=== PATIENT | male | born 1985 | race Caucasian/White ===

== ENCOUNTER 2016-09-21 10:31 | Inpatient (IN) | payer OTHER ==
[~2016-09-21] VITALS: Ht 177.8 cm; Wt 66.7 kg
[2016-09-21] MEDS ORDERED: HYDROmorphone INJ 1 MG/ML SYR IV STA (11:23)
[2016-09-21] MEDS ORDERED: ALBUTEROL HFA 8 GM INHALER INH STA (11:23)
[2016-09-21] MEDS ORDERED: ALBUTEROL 0.5% NEB SOLN 2.5 MG/0.5 ML VIAL INH STA (11:23)
[2016-09-21] MEDS ORDERED: KETOROLAC TROMETHAMINE 30 MG/ML VIAL IV STA (11:23)
[2016-09-21] MEDS ORDERED: OXYC-57 PO (11:26)
[2016-09-21] MEDS ORDERED: FLX/5 (11:26)
--- NOTE | 2016-09-21 11:56 | DIAGNOSTIC IMAGING REPORT ---
RIGHT SHOULDER MIN 2 VIEWS ROUTINE HISTORY: 31 years-old Male Pt c/o Rt shoulder pain Right COMPARISON: Portable chest radiograph 09/21/2016 TECHNIQUE: 3 views of the right shoulder. FINDINGS: There is no acute fracture, dislocation or significant degenerative changes. No radiopaque foreign body. There is a large right-sided pneumothorax without definite leftward midline shift identified. IMPRESSION: 1. Large right-sided pneumothorax, better evaluated on chest radiograph of same day. 2. No acute bony abnormality of the right shoulder. These findings were discussed with Dr. Addi Chavez on 09/21/2016 at 11:55 AM The above report was generated using voice recognition software. It may contain grammatical, syntax or spelling errors. Electronically signed by: Frantz Zayas M.D. 09/21/2016 11:55 AM Dictated Date/Time: 09/21/2016 11:51 AM
--- NOTE | 2016-09-21 12:07 | DIAGNOSTIC IMAGING REPORT ---
CHEST 1 VW FRONT-NOT PORTABLE CLINICAL HISTORY: Pt c/o SOB dyspnea COMPARISON STUDY: No previous studies for comparison. FINDINGS: Large right pneumothorax. Estimated volume is 75% pneumothorax. No significant cardiac mediastinal silhouette shift. Left lung is considered clear. IMPRESSION: 75% right-sided pneumothorax. No significant cardiomediastinal shift. This report was phoned to the emergency room The above report was generated using voice recognition software. It may contain grammatical, syntax or spelling errors. Electronically signed by: Otto Lara M.D. 09/21/2016 12:06 PM Dictated Date/Time: 09/21/2016 12:03 PM
[2016-09-21] MEDS ORDERED: XYLOCAINE 1%/SOD BICARB 20 ML VIAL INFIL ONE (12:18)
--- NOTE | 2016-09-21 12:18 | EMERGENCY ROOM VISIT NOTE ---
History Report prepared by Roxanna: Tri Back Under the Supervision of: Dr. Addi Chavez M.D. First contact with patient: 11:20 Chief Complaint: Chest pain Stated Complaint: WEAKNESS,CHEST PAIN,SOB Nursing Triage Summary: Pt woke up yesterday morning with shortness of breath. Pt has a history of pluerisy of the left side last year. Pt has a productive cough with clear sputum and when he takes a deep breath there is pain with both inhalation/exhalation. Pt states that the right side of his chest is swollen. Pts left breath sound are diminished in the left lower lobe. Pt denies any fever or chills. Pt reports pain in his left chest as a 6 out of 10 on pain scale while at rest. With movement pain increases. History of Present Illness The patient is a 31 year old male who presents to the Emergency Room with complaints of worsening right-sided chest pain that began yesterday. He states that his pain radiates into his right shoulder and through into the right side of his back. The patient rates his pain as a 7/10 in severity. His pain is exacerbated by deep breathing, coughing, and movement of the right arm. He denies any injury to his chest and any recent heavy lifting. He states that he just woke up yesterday morning with the pain. The patient states that he has tendonitis in his left shoulder, but notes that this pain feels different. He tried taking a muscle relaxer yesterday and did not have any relief of his symptoms. He does report some shortness of breath. The patient denies lightheadedness. He denies any significant cardiac history. The patient does smoke cigarettes. Source of History: patient Onset: yesterday Position: chest (right) Symptom Intensity: 7/10 Quality: other (radiating) Timing: worsening Modifying Factors (Worsening): breathing, movement, other (coughing) Associated Symptoms: + back pain Review of Systems See HPI for pertinent positives & negatives. A total of 10 systems reviewed and were otherwise negative. Past Medical & Surgical Medical Problems: (1) Hypertension (2) Spontaneous pneumothorax (3) Tendonitis of shoulder, left Family History Diabetes mellitus Seizures Social History Smoking Status: Current Every Day Smoker Alcohol Use: none Marital Status: in relationship Housing Status: lives with significant other Occupation Status: employed Current/Historical Medications Scheduled Oxycodone/Acetaminophen 5MG/325MG (Percocet 5MG/325MG), 1 TAB PO QID Miscellaneous Medications Cyclobenzaprine HCl (Cyclobenzaprine HCl) Allergies Coded Allergies: No Known Allergies (Unverified , 09/21/16) Physical Exam Vital Signs Date Time Temp Pulse Resp B/P (MAP) Pulse Ox O2 Delivery O2 Flow Rate FiO2 09/21/16 12:42 71 18 146/96 99 Nasal Cannula 3.0 09/21/16 12:41 73 09/21/16 12:39 77 18 139/90 98 Nasal Cannula 3.0 09/21/16 12:30 72 18 144/88 98 Nasal Cannula 3.0 09/21/16 12:00 65 20 156/93 97 Nasal Cannula 3.0 09/21/16 11:00 85 09/21/16 10:57 97 Room Air 09/21/16 10:57 96 Room Air 09/21/16 10:37 36.7 90 20 137/83 97 Room Air Physical Exam GENERAL: Patient is a healthy-appearing well-nourished 31 year old male. HEAD: Normocephalic atraumatic EYES: Ocular movements intact pupils equal and react to light OROPHARYNX mucous membranes are moist no exudates present no erythema or edema present NECK: Supple no nuchal rigidity CHEST: Good equal expansion LUNGS: Clear and equal to auscultation CARDIAC: Normal S1 and S2 ABDOMEN: Soft nontender no guarding BACK: No CVA tenderness EXTREMITIES: No pain upon palpation normal muscle strength in all groups no clubbing cyanosis or edema NEURO: Patient is following commands and answering questions appropriately. Alert and oriented x3 Cranial Nerves 2-12 grossly intact Medical Decision & Procedures ER Provider Diagnostic Interpretation: Radiology results as stated below per my review and radiologist interpretation: RIGHT SHOULDER MIN 2 VIEWS ROUTINE HISTORY: 31 years-old Male Pt c/o Rt shoulder pain Right COMPARISON: Portable chest radiograph 09/21/2016 TECHNIQUE: 3 views of the right shoulder. FINDINGS: There is no acute fracture, dislocation or significant degenerative changes. No radiopaque foreign body. There is a large right-sided pneumothorax without definite leftward midline shift identified. IMPRESSION: 1. Large right-sided pneumothorax, better evaluated on chest radiograph of same day. 2. No acute bony abnormality of the right shoulder. These findings were discussed with Dr. Addi Chavez on 09/21/2016 at 11:55 AM The above report was generated using voice recognition software. It may contain grammatical, syntax or spelling errors. Electronically signed by: Frantz Zayas M.D. 09/21/2016 11:55 AM Dictated Date/Time: 09/21/2016 11:51 AM CHEST 1 VW FRONT-NOT PORTABLE CLINICAL HISTORY: Pt c/o SOB dyspnea COMPARISON STUDY: No previous studies for comparison. FINDINGS: Large right pneumothorax. Estimated volume is 75% pneumothorax. No significant cardiac mediastinal silhouette shift. Left lung is considered clear. IMPRESSION: 75% right-sided pneumothorax. No significant cardiomediastinal shift. This report was phoned to the emergency room The above report was generated using voice recognition software. It may contain grammatical, syntax or spelling errors. Electronically signed by: Otto Lara M.D. 09/21/2016 12:06 PM Dictated Date/Time: 09/21/2016 12:03 PM CHEST ONE VIEW PORTABLE CLINICAL HISTORY: Post chest tube insertion tube position COMPARISON STUDY: 09/21/2016 FINDINGS: Interval placement of right-sided chest tube. Subsegmental atelectatic change right midlung and right base. Considerable decrease in volume of right-sided pneumothorax. Mediastinum and cardiac silhouette remains midline. IMPRESSION: Considerable decrease in volume of a right-sided pneumothorax with near complete reinflation of the right lung post right chest tube placement. Residual atelectatic change right midlung and right base.. The above report was generated using voice recognition software. It may contain grammatical, syntax or spelling errors. Electronically signed by: Otto Lara M.D. 09/21/2016 1:04 PM Dictated Date/Time: 09/21/2016 1:03 PM Medications Administered Medications (Trade) Dose Ordered Sig/Ramy Route Start Time Stop Time Status Last Admin Dose Admin Ketorolac Tromethamine (Toradol Inj) 30 mg NOW STAT IV 09/21/16 11:23 09/21/16 11:25 DC 09/21/16 11:33 30 MG Hydromorphone HCl (Dilaudid Inj) 1 mg NOW STAT IV 09/21/16 11:23 09/21/16 11:25 DC 09/21/16 11:33 1 MG Albuterol (Ventolin Hfa Inhaler) 2 puffs NOW STAT INH 09/21/16 11:23 09/21/16 11:26 DC 09/21/16 11:34 2 PUFFS Albuterol Sulfate (Ventolin 0.5% 2.5MG/0.5ML Neb) 2.5 mg NOW STAT INH 09/21/16 11:23 09/21/16 11:26 DC 09/21/16 11:33 2.5 MG Morphine Sulfate (MoRPHine SULFATE INJ) 2 mg STK-MED ONCE .ROUTE 09/21/16 12:28 09/21/16 12:29 DC 09/21/16 12:38 2 MG Midazolam HCl (Versed Inj) 2 mg STK-MED ONCE .ROUTE 09/21/16 12:28 09/21/16 12:29 DC 09/21/16 12:39 1 MG Oxycodone HCl (Roxicodone Immediate Rel Tab) 5 mg Q6H PRN PO 09/21/16 12:45 10/05/16 12:44 09/22/16 09:00 5 MG Morphine Sulfate (MoRPHine SULFATE INJ) 2 mg Q3H PRN IV 09/21/16 12:45 09/22/16 09:20 DC 09/21/16 19:25 2 MG ECG Indication: chest pain Rate (beats per minute): 75 Rhythm: normal sinus Findings: no acute ischemic change, no ectopy ED Course 1120: Past medical records reviewed. The patient was evaluated in room C. A complete history and physical examination was performed. 1123: Albuterol sulfate 2.5 mg INH, Albuterol 2 puffs INH, Dilaudid 1 mg IV, Toradol 30 mg IV 1155: At this time I spoke with the radiologist regarding the patient's radiology results. 1159: I spoke with Dr. Koehler of thoracic surgery. We discussed the patient's case and he will come to the ED to evaluate the patient. 1202: I reassessed the patient at this time. I discussed the results and treatment plan with the patient. I answered all pertaining questions that he had. He expressed understanding and verbalized agreement. The patient was moved to room A1 for his procedure. 1252: I discussed the patient's case with Harshad Lainez PA-C with thoracic surgery. He will evaluate the patient for further management. Medical Decision Etiologies such as infections, reactive airway disease, pneumonia, pneumothorax , COPD, CHF, cardiac ischemia, pulmonary embolism, musculoskeletal, gastrointestinal, as well as others were entertained. This is a 31-year-old male who presents emergency department complaining of right shoulder and chest pain. Due to the patient's complaints the patient was sent for a x-ray of the shoulder and chest however the chest x-ray was not transmitted due to a [employer] error. Due to this there is some delay in the diagnosis of this patient's pneumothorax. In the meanwhile an IV was established, the patient was given Toradol normal saline and Dilaudid. I immediately discussed the case with Dr. Koehler who immediately came down to see the patient. The patient was immediately moved into the trauma bay. Patient was in agreement with the treatment plan. Medication Reconcilliation Current Medication List: was personally reviewed by me Blood Pressure Screening Patient's blood pressure: Elevated blood pressure Blood pressure disposition: Elevated BP felt to be situational Consults Time Called: 1158 Consulting Physician: Dr. Koehler Returned Call: [address] Koehler of thoracic surgery. We discussed the patient's case and he will come to the ED to evaluate the patient. Additional Consults: Time Called: 1252 Consulted Physician: Harshad Lainez PA-C Returned Call: 1252 Additional Comments: I discussed the patient's case with Harshad Lainez PA-C with thoracic surgery. He will evaluate the patient for further management. Impression Primary Impression: Pneumothorax Scribe Attestation The scribe's documentation has been prepared under my direction and personally reviewed by me in its entirety. I confirm that the note above accurately reflects all work, treatment, procedures, and medical decision making performed by me. Departure Information Dispostion Being Evaluated By Surgeon Referrals No Doctor, Assigned (PCP) Patient Instructions My [facility] Problem Qualifiers Primary Impression: Pneumothorax Pneumothorax type: unspecified pneumothorax Qualified Codes: J93.9 - Pneumothorax, unspecified
[2016-09-21] MEDS ORDERED: MIDAZOLAM HCL 1 MG/ML 2ML VIAL ONE (12:28)
[2016-09-21] MEDS ORDERED: MoRPHine SULFATE 2 MG/ML CARP ONE (12:28)
[2016-09-21] MEDS ORDERED: ONDANSETRON INJ 2 MG/ML 2 ML VIAL IV PRN (12:45)
[2016-09-21] MEDS ORDERED: ACETAMINOPHEN 325 MG TAB PO PRN (12:45)
[2016-09-21] MEDS ORDERED: KETOROLAC TROMETHAMINE 15 MG/ML VIAL IM PRN (12:45)
[2016-09-21] MEDS ORDERED: CYCLOBENZAPRINE HCL 5 MG TAB PO PRN (13:00)
[2016-09-21] MEDS: OXYCODONE HCL IR 5 MG TAB (IMMEDIATE RELEASE) PO PRN ×2 (13:02→17:34)
--- NOTE | 2016-09-21 13:05 | DIAGNOSTIC IMAGING REPORT ---
CHEST ONE VIEW PORTABLE CLINICAL HISTORY: Post chest tube insertion tube position COMPARISON STUDY: 09/21/2016 FINDINGS: Interval placement of right-sided chest tube. Subsegmental atelectatic change right midlung and right base. Considerable decrease in volume of right-sided pneumothorax. Mediastinum and cardiac silhouette remains midline. IMPRESSION: Considerable decrease in volume of a right-sided pneumothorax with near complete reinflation of the right lung post right chest tube placement. Residual atelectatic change right midlung and right base.. The above report was generated using voice recognition software. It may contain grammatical, syntax or spelling errors. Electronically signed by: Otto Lara M.D. 09/21/2016 1:04 PM Dictated Date/Time: 09/21/2016 1:03 PM
[2016-09-21 14:19] VITALS: BP 135/88; PULSE 72; TEMP 36.5; O2SAT 96; Ht 177.8 cm; Wt 66.7 kg
[2016-09-21 15:19] VITALS: BP 141/88; PULSE 68; TEMP 36.7; O2SAT 97
[2016-09-21] MEDS: MoRPHine SULFATE 2 MG/ML CARP IV PRN ×2 (15:22→19:25)
--- NOTE | 2016-09-21 16:33 | HISTORY & PHYSICAL EXAMINATION ---
DATE OF ADMISSION: 09/21/2016 REASON FOR ADMISSION: Spontaneous right pneumothorax. HISTORY OF PRESENT ILLNESS: This is a 31-year-old male who has been smoking since the age of 19, about a pack of cigarettes a day, who noted acute onset of right-sided back pain with radiation into his right chest. He states that he "suffered with it" until today when he presented to the Emergency Room at [facility] and was found to have a large right pneumothorax. The patient also has been smoking marijuana a couple of times a day for the last 10-12 years. I was asked to evaluate him from a thoracic surgery standpoint. We are going to insert a chest tube here in the Emergency Room and admit the patient for more workup including a CT scan with possible bleb resection. PAST MEDICAL HISTORY: 1. History of cigarette smoking (approximately 12 pack years). 2. History of marijuana use. 3. Tendinitis, left shoulder. 4. Questionable hypertension. PAST SURGICAL HISTORY: Tonsillectomy. MEDICATIONS: 1. Percocet. 2. Cyclobenzaprine. ALLERGIES: No known drug allergies. SOCIAL HISTORY: The patient lives with his significant other. There are no children in the house. 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 FAMILY MEDICAL HISTORY: The patient has a 10-year-old daughter who is healthy and lives with her mother. His parents are both still living and healthy. He has a brother and sister alive and well. There is a history of "diabetes" in both sides of his family and his grandparents as well as a questionable seizure history in his grandparents. REVIEW OF SYSTEMS: The patient has always been "thin." Currently weighs between 135 and 140, his weight has not changed. He denies night sweats. He does cough up a little bit of "yellow" sputum each morning. This has been unchanged. He has had no fever or chills. He does complain of pain in his hips on occasion. He also complains of pain in his left shoulder on occasion. He denies any GI or symptoms. He has had no joint swelling. He denies any skin breakdown. He has had no auditory or visual symptoms. He denies any neurologic symptoms such as amaurosis fugax, transient ischemic attacks. PHYSICAL EXAMINATION: GENERAL: 5' 10", 140-pound white male who is awake, alert and oriented. He has a fairly large ramsay. HEENT: His extraocular movements are intact. His pupils are equal, round and reactive. Sclerae are anicteric. He has no nasolabial flattening. The patient is edentulous. He has no oral mucosal lesions. His tongue is midline. NECK: Supple. He has no supraclavicular or cervical lymphadenopathy, neck vein distention, thyromegaly or tracheal deviation. I detect no carotid bruits. LUNGS AND HEART: He has decreased breath sounds on the right. He has a regular rate and rhythm of his heart. He has no wheezing upon auscultation of his lungs. ABDOMEN: Flat, soft, nontender. No evidence of hepatosplenomegaly or ascites. EXTREMITIES: He has good femoral pulses. Good pedal pulses. No joint effusions and no peripheral edema. NEUROLOGIC: He is completely intact. Cranial nerves II-XII are intact. DATA: I reviewed his chest x-ray. He has got a large right pneumothorax. He does not appear to be under tension. ASSESSMENT: Spontaneous right pneumothorax. PLAN: Insert a small bore chest tube here in the Emergency Room and admit the patient and we will get a CT scan in the morning. I had a long talk with the patient and his girlfriend here in the Emergency Room. ARNOL
--- NOTE | 2016-09-21 18:38 | OPERATIVE REPORT ---
DATE OF OPERATION: 09/21/2016 PROCEDURE: Insertion of right 16 Surinamese thoracostomy tube. SURGEON: Dr. Koehler. NURSE SPECIAL: Harshad Lainez, physician research lab assistant. ANESTHESIA: Local with morphine and Versed. SPECIFICS OF THE PROCEDURE: After appropriate consent had been signed and the appropriate timeout had been called the patient was sedated with Versed and morphine. This was given parenterally. The patient raised his right arm over behind his head and his right anterior chest was prepped and draped in usual sterile fashion. Approximately seventh interspace in the anterior axillary line of the skin was selected. This was prepped and draped in usual sterile fashion. 1% Xylocaine without epinephrine was used to anesthetize the skin and subcutaneous tissues over the rib with a 25 gauge needle. Small incision approximately 8 mm in length was made transversely. A larger needle was used to anesthetize the deeper tissues and pleura going up and over the rib. A large bore needle was then used to enter the pleural cavity and guidewire was inserted through the needle and needle removed. A small dilator was used to dilate up this space minimally and then a 16-Surinamese chest tube with a trocar was placed over this guidewire. Inner cannula and guidewire removed. 2-0 silk was used to anchor the tube to the patient's skin. This was attached to water seal and there was an air leak. Chest x-ray showed good position with some atelectasis of the lung still. He tolerated it very well. Microbial dressings were placed. The patient was admitted to the floor. I attest to the content of the Intraoperative Record and any orders documented therein. Any exception s are noted below.
[2016-09-21] MEDS ORDERED: NURSING VERBAL MED ORDER ONE (18:45)
[2016-09-21] MEDS: GABAPENTIN 300 MG CAP PO SCH (19:19)
[2016-09-21] MEDS: KETOROLAC TROMETHAMINE 30 MG/ML VIAL IV. SCH (19:19)
[2016-09-21] MEDS: ACETAMINOPHEN IV 1000MG/100ML IV SCH (21:42)
[2016-09-21 22:55] VITALS: BP 124/82; PULSE 51; TEMP 36.3; O2SAT 98
[2016-09-22] MEDS: KETOROLAC TROMETHAMINE 30 MG/ML VIAL IV. SCH ×3 (03:12→18:41)
[2016-09-22 03:44] VITALS: BP 104/63; PULSE 54; TEMP 36.8; O2SAT 96
[2016-09-22] MEDS: OXYCODONE HCL IR 5 MG TAB (IMMEDIATE RELEASE) PO PRN ×4 (03:50→23:22)
[2016-09-22] MEDS: ACETAMINOPHEN IV 1000MG/100ML IV SCH ×3 (05:46→21:57)
[2016-09-22 07:02] VITALS: BP 132/81; PULSE 54; TEMP 36.4; O2SAT 99
--- NOTE | 2016-09-22 07:58 | DIAGNOSTIC IMAGING REPORT ---
ADDENDUM 5 x 5 mm groundglass solitary nodule of the posterior segment right upper lobe is incidentally noted. Please refer to the guidelines below for follow-up recommendations. Please refer to below summary of Fleischner criteria recommendations for follow-up of incidental CT nodules (Charli Burton, Guidelines for management of small pulmonary nodules detected on CT scans: A statement from the Fleischner Society, Radiology 237: [phone].) Note: newly detected indeterminate nodule in persons 35 years of age or older. * Low risk patients: minimal or absent history of smoking and/or other known risk factors * high risk patients: history of smoking or of other known risk factors (e.g. first degree relative with lung cancer, or exposure to asbestos, radon, uranium) * if a nodule up to 8 mm is partly solid or is ground glass further follow-up is required after 24 months to exclude possible slow growing adenocarcinoma (MERCED) SUBSOLID NODULES Solitary pure ground-glass nodule * nodule size <6 mm - no CT follow-up required * nodule size >=6 mm - follow-up CT at 6-12 months, then every 2 years until 5 years Electronically signed by: Frantz Zayas M.D. 09/22/2016 8:23 AM Dictated Date/Time: 09/22/2016 8:21 AM ORIGINAL REPORT (CHEST) THORAX WITHOUT CT DOSE: 233.04 mGy.cm CLINICAL HISTORY: 31 years-old Male with pneumothorax. Acute chest pain and shortness of breath TECHNIQUE: Multiaxial CT images of the chest were performed without contrast. A dose lowering technique was utilized adhering to the principles of ALARA. COMPARISON: Portable chest radiograph 09/21/2016. FINDINGS: Thyroid is homogeneous. There is no pathologic adenopathy of the chest. Heart is normal in size without pericardial effusion. The thoracic aorta is normal in both course and caliber. Right-sided chest tube is again seen with distal tip terminating adjacent to the right lung apex. Areas of fluid opacification are seen centrally within the chest tube. There is trace subcutaneous emphysema in the right lateral chest wall adjacent to the chest tube. There is reexpansion of the right lung without measurable pneumothorax. Biapical centrilobular emphysematous changes are seen with multiple bleb formations at the lung apices. Mild paraseptal emphysematous changes are also noted within the upper lobes bilaterally. There is no pleural effusion. Mild subsegmental right basilar consolidative opacities are seen suggesting atelectasis. Central airways are patent. There is no pneumomediastinum. Upper abdominal structures are within normal limits. Soft tissues are unremarkable. Bones are intact. IMPRESSION: 1. Reexpansion of the right lung without measurable pneumothorax identified. Mild intraluminal fluid is present within the right-sided chest tube. 2. Mild apical distribution of centrilobular and paraseptal emphysematous changes with associated biapical bleb formation. This is likely the culprit of the patient's spontaneous pneumothorax. 3. Mild right basilar subsegmental atelectasis. Electronically signed by: Frantz Zayas M.D. 09/22/2016 7:56 AM Dictated Date/Time: 09/22/2016 7:41 AM
[2016-09-22] MEDS: GABAPENTIN 300 MG CAP PO SCH ×3 (08:59→21:06)
--- NOTE | 2016-09-22 09:54 | SURGERY PROGRESS NOTE ---
DATE: 09/22/2016 Mr. Tracy was seen this morning on 09/22/2016. Not surprisingly, Mr. Tracy is having problems with pain. The morphine really did not help him. The patient has used Percocet chronically for his low back pain and probably has a high tolerance. He states that he has not used them regularly for 3 months. The parenteral ketorolac and IV acetaminophen seemed to have helped him. We will increase his oxycodone to 10 mg. He states this morning his pain is better controlled. He really does not have much of an air leak. I was quite surprised at his CT scan. He does have evidence of apical blebs which I think are probably the reason for his pneumothorax; however, he also had some emphysematous changes, but more concerning to me is he has a mass in the inferior aspect of his right upper lobe which is near the fissure. This does not look like inflammation to me. I went over this with Dr. Zayas. I am concerned about this appearance. I think it is a bit more solid than a ground-glass opacity. I feel this is amenable to a wedge resection for biopsy. I had a long talk with the patient and his significant other. We are going to take him to the operating room tomorrow and I am going to do an apical bleb resection robotically. I am also going to wedge this mass out. We will do a frozen section. If it is a carcinoma, we will do a robotic-assisted thoracoscopic right upper lobectomy with mediastinal lymphadenectomy. I have to say I am concerned about the look of this. He has no mediastinal adenopathy. As we are offering him the thoracoscopy anyway to wedge out his upper lobe blebs, I think that wedging this out would be the best option: We had a long discussion about risk and benefits. He understands. We are scheduled to go tomorrow morning.
[2016-09-22] MEDS ORDERED: NICOTINE 14 MG/24 HR TDSY TD ONE (10:45)
[2016-09-22] MEDS: MoRPHine SULFATE 4 MG/ML 1 ML CARP\\VIAL IV PRN ×3 (14:11→21:06)
--- NOTE | 2016-09-22 14:43 | Anesthesiology Progress Note ---
Anesthesia Progress Note Date of Service Sep 22, 2016. Progress Notes Mr. Tracy is a 31 year old male with daily smoking history slated for Right VATS and biopsy tomorrow with Dr. Koehler. NKDA. No meds as outpatient. No previous problems with anesthesia. Possible HTN but not currently treated. He presented with right sided pneumothorax and on CT of chest found to have a small lesion that is concerning for possible malignancy. Airway exam shows edentulous patient with MP 2 with full ramsay. Patient had anesthesia plan discussed and was consented for general anesthesia (with RIA) and arterial line. All questions answered.
[2016-09-22 14:58] VITALS: BP 144/80; PULSE 56; TEMP 36.7; O2SAT 98
[2016-09-22 15:52] LABS: BASO % 0.8 %; BASO ABS # 0.05 K/uL (0-0.2); COMPLETE YES; EOS % 2.6 %; HEMATOCRIT 43.9 % (42-52); IG% 0.2 %; LYMPH ABS # 2.42 K/uL (1.2-3.4); MEAN CORPUSCULAR HEMOGLOBIN 31.4 pg (25-34); MEAN CORPUSCULAR HGB CONC 34.2 g/dl (32-36); MEAN PLATELET VOLUME 11.2 fL (7.4-10.4); MONO % 7.8 %; NEUT % 48.6 %; PLATELET COUNT 212 K/uL (130-400); RED BLOOD COUNT 4.77 M/uL (4.7-6.1); WHITE BLOOD COUNT 6.05 K/uL (4.8-10.8)
[2016-09-22 18:57] VITALS: BP 123/80; PULSE 66; TEMP 36.5; O2SAT 98
[2016-09-22 23:00] VITALS: BP 110/68; PULSE 64; TEMP 36.4; O2SAT 98
[2016-09-23] VITALS (10 sets, daily range): BP systolic 100–137; BP diastolic 59–74; PULSE 60–95; TEMP 36.4–36.8; O2SAT 95–99
[2016-09-23] MEDS: KETOROLAC TROMETHAMINE 30 MG/ML VIAL IV. SCH ×3 (03:07→19:33)
[2016-09-23] MEDS: ACETAMINOPHEN IV 1000MG/100ML IV SCH ×3 (05:44→22:02)
[2016-09-23] MEDS: OXYCODONE HCL IR 5 MG TAB (IMMEDIATE RELEASE) PO PRN ×4 (06:03→23:55)
--- NOTE | 2016-09-23 07:24 | History & Physical Bridge Note ---
H&P Re-Evaluation Bridge Note: I have examined the patient, reviewed the History & Physical and in the interval since the performance of the History & Physical I have noted the following changes of clinical significance: No changes noted
[2016-09-23] MEDS ORDERED: MIDAZOLAM HCL 1 MG/ML 2ML VIAL ONE (07:43)
[2016-09-23] MEDS ORDERED: FENTANYL CITRATE INJ 50 MCG/1 ML 2 ML VIAL ONE ×3 (07:43→10:02)
[2016-09-23] MEDS ORDERED: KETAMINE HCL INJ 50 MG/ML 10 ML VIAL ONE (07:43)
[2016-09-23] MEDS ORDERED: FENTANYL CITRATE INJ 50 MCG/1 ML 2 ML VIAL IV PRN (08:00)
[2016-09-23] MEDS ORDERED: ONDANSETRON INJ 2 MG/ML 2 ML VIAL IV PRN ×2 (08:00→11:30)
[2016-09-23] MEDS ORDERED: EpHEDrine SULFATE INJ 50 MG/ML AMP IV PRN (08:00)
[2016-09-23] MEDS ORDERED: ATROPINE SULFATE 0.1 MG/ML 5ML SYR IV PRN (08:00)
[2016-09-23] MEDS ORDERED: BUPIVACAINE LIPOSOME 1/3% 266 MG/20 ML VIAL INFIL ONE (08:04)
[2016-09-23] MEDS ORDERED: SODIUM CHLORIDE 0.9% PF 50 ML VIAL ONE (08:04)
[2016-09-23] MEDS: GABAPENTIN 300 MG CAP PO SCH ×3 (09:00→21:01)
[2016-09-23] MEDS ORDERED: CEFAZOLIN SOD 1 GM VIAL ONE (10:54)
[2016-09-23] MEDS ORDERED: PROPOFOL IV EMULSION 10 MG/ML 20 ML VIAL IV ONE (10:54)
[2016-09-23] MEDS ORDERED: DEXAMETHASONE SOD INJ 4 MG/ML VIAL ONE (10:54)
[2016-09-23] MEDS ORDERED: LIDOCAINE HCL 2% 2 ML VIAL (20MG/ML) ONE (10:54)
[2016-09-23] MEDS ORDERED: PHENYLEPHRINE 100MCG/ML 5ML SYR ONE (10:54)
[2016-09-23] MEDS ORDERED: ONDANSETRON INJ 2 MG/ML 2 ML VIAL ONE (10:54)
[2016-09-23] MEDS ORDERED: EpHEDrine SULFATE 50MG/5ML SYR ONE (10:54)
[2016-09-23] MEDS ORDERED: ROCURONIUM BROMIDE 10 MG/ML 5 ML VIAL ONE (10:54)
[2016-09-23] MEDS ORDERED: NEOSTIGMINE METHYLSULFATE 5 MG/5 ML SYR ONE (10:59)
[2016-09-23] MEDS ORDERED: GLYCOPYRROLATE INJ 0.2 MG/ML VIAL ONE (10:59)
[2016-09-23] MEDS ORDERED: D5W AND 1/2NSS 1,000 ML IV SCH (11:30)
[2016-09-23] MEDS ORDERED: SODIUM CHLORIDE 0.9% INJ 10 ML VIAL ONE (11:49)
[2016-09-23] MEDS ORDERED: METOPROLOL TARTRATE 1 MG/ML VIAL ONE (11:49)
[2016-09-23] MEDS: HYDROmorphone INJ 1 MG/ML SYR IV PRN ×5 (12:04→12:39)
--- NOTE | 2016-09-23 12:26 | DIAGNOSTIC IMAGING REPORT ---
SINGLE VIEW CHEST CLINICAL HISTORY: Spontaneous pneumothorax. FINDINGS: 2 AP, portable, upright chest radiographs are compared to study dated 09/21/2016 and correlated with chest CT dated 09/22/2016. The examination is degraded by portable technique and patient rotation. A chest tube at the right apex is unchanged in position. The cardiomediastinal silhouette is unremarkable. Emphysema and chronic interstitial thickening are similar to previous. Linear atelectasis is seen in the left midlung. Trace pleural fluid is seen at the right lung base. Suture material is now seen in the right peritoneum mediastinal upper lung with airspace opacities which could represent atelectasis versus hemorrhage. There is a small residual right apical pneumothorax. The pleural line is difficult to visualize. The bony thorax is grossly intact. Minimal subcutaneous emphysema is noted along the right chest wall and the right lower neck. IMPRESSION: 1. Postoperative change is seen in the right upper lung, new from previous. 2. A right apical chest tube is again noted. There is a trace residual right apical pneumothorax. 3. Right paratracheal density in the right upper lobe likely represents atelectasis versus postoperative hemorrhage. 4. There is increasing atelectasis in the left midlung. 5. Trace pleural fluid is seen at the right lung base. Electronically signed by: Mike Almeida M.D. 09/23/2016 12:25 PM Dictated Date/Time: 09/23/2016 12:04 PM
--- NOTE | 2016-09-23 12:41 | Anesthesiology Progress Note ---
Anesthesia Post Op Note Date & Time Sep 23, 2016 at 12:41 Vital Signs Pain Intensity: 9.0 Vital Signs Past 12 Hours Date Time Temp Pulse Resp B/P (MAP) Pulse Ox O2 Delivery O2 Flow Rate FiO2 09/23/16 11:40 36.1 65 19 09/23/16 07:25 Room Air 09/23/16 06:56 36.5 60 18 112/72 (85) 98 Room Air Notes Mental Status: alert / awake / arousable, participated in evaluation Pt Amnestic to Procedure: Yes Nausea / Vomiting: adequately controlled Pain: adequately controlled, improving with treatment Airway Patency, RR, SpO2: stable & adequate BP & HR: stable & adequate Hydration State: stable & adequate Anesthetic Complications: no major complications apparent
[2016-09-23 13:21] LABS: INR 1.1 (0.9-1.1); PARTIAL THROMBOPLASTIN RATIO 1.1; PROTHROMBIN TIME (PATIENT) 11.3 SECONDS (9.0-12.0)
[2016-09-23 13:30] LABS: CREATININE 0.93 mg/dl (0.60-1.40)
[2016-09-23] MEDS: MoRPHine SULFATE 4 MG/ML 1 ML CARP\\VIAL IV PRN ×2 (13:45→17:02)
[2016-09-23] MEDS: NICOTINE 14 MG/24 HR TDSY TD SCH (13:47)
[2016-09-23] MEDS: METOCLOPRAMIDE HCL INJ 5 MG/ML 2 ML VIAL IV. SCH ×2 (13:59→20:30)
--- NOTE | 2016-09-23 14:02 | OPERATIVE REPORT ---
DATE OF OPERATION: 09/23/2016 PREOPERATIVE DIAGNOSES: 1. Spontaneous pneumothorax. 2. Small nodule in the lateral aspect of right upper lobe. POSTOPERATIVE DIAGNOSES: Same. PROCEDURE: Robotic-assisted right thoracoscopic surgery with wedge resection of lateral aspect and apical aspect in 1 large wedge. There were 2 with lymph node biopsies. SURGEON: Dr. Koehler. HOURLY ASSOCIATE: LAUREN Garcia. ANESTHESIA: General anesthesia endotracheal intubation. INDICATION FOR PROCEDURE AND FINDINGS: Mr. Tracy is a 31-year-old male who came in with spontaneous pneumothorax. I placed a chest tube in the Emergency Room and his lung expanded nicely and the following day, we did a CT scan to see if he had any bulla. He did have right apical bullous disease. It was fairly subtle but it was there. He had the concern, however there appeared to be a semi-solid mass and even though it was only 5-6 mm in diameter in the lateral aspect of the right upper lobe, I was concerned about it. I discussed possible navigational bronchoscopy with markings, however, at this point I felt that we would be able to wedge this out, given its location. For this reason, on 09/23/2016, the patient was brought to the operating room and underwent a robot-assisted thoracoscopic surgery and I wedged this lateral aspect out as well as the apical aspect in 1 large wedge. The lung expanded nicely with no leak. Pathology had a hard time finding this but it was semi-solid, so after some deliberation and their inability to find a solid nodule, I elected to stop as I am confident that we have this mass somewhere within this specimen. I debated doing a thoracoscopic right upper lobectomy, but I felt that in a 31-year-old, this would be extremely aggressive pain and so I elected not to. I did biopsy the right level 7 and right level 11 lymph nodes. He tolerated it well. Blood loss was negligible. He was extubated in the room. We did use an Exparel block. PROCEDURE IN DETAIL: The patient was brought to the operating room and laid in supine position. General anesthesia was induced and endotracheal intubation was performed. This was done with a double lumen tube. The patient was then placed in left lateral decubitus position, right chest prepped and draped in usual sterile fashion after proper positioning. We made 5 separate small incisions, 1 posteriorly along the 7th interspace, just above the 8th rib. We initially put in the camera and placed the rest of our ports under guidance and placed a 5 mm port posteriorly and then two 8 mm ports and two 12 mm ports. One port was the acute care nursing assistant port just above the diaphragm and the other was the camera port. Upon going in, we could see there were no adhesions. He did have bullae in the apex. They were small but definitely present. I then spent a great deal of time trying to palpate this mass; however, I could not feel it, which did not surprise me, given its appearance on CT scan. For this reason, I started using Endo-NORTH stapler and fired along the fissure, towards the anterolateral aspect and then I took this staple line and kept continuing going up and removed the apical blebs. This was retrieved with a retrieval bag and then sent to the pathologist. While waiting for the frozen section, I took down the posterior pleura and dissected out the right upper lobe bronchus quite nicely actually. Biopsy level 7 as well as the level 11 node and identified the posterior ascending artery to the upper lobe. Frozen section came back and I discussed this in detail with Dr. Osbaldo Cervantes. He did not really find a mass but I am confident that we had it in there. Rather than proceed with a lobectomy which would have been fairly easy, given his anatomy, I elected to stop here in this 31-year-old man. We will see what the final pathology shows. I explained to the patient and his family the possibility that we will bring him back for a definitive lobectomy. He tolerated it well and was extubated in the room with negligible blood loss. The patient was brought to the operating room and laid in supine position. General anesthesia induced and endotracheal intubation was performed with a double lumen tube. The patient was placed in left lateral decubitus position, right chest prepped and draped in usual sterile fashion. After the ports had been placed and the robot docked, I then closely inspected this area. He did have some bulla but more importantly, I could not palpate this mass. Grasping the edge of the fissure anterolaterally, I used an Endo-NORTH stapler and did a generous wedge resection going laterally and then moving up to include the apex. This was delivered off the field with an Endobag. The chest was then filled with saline and the staple lines were seen to be airtight. While waiting for frozen section, I then dissected out, I then retracted the lung anteriorly and using the dissecting forceps, I opened the pleura and removed 2 separate level 7 nodes. Coming down the right mainstem bronchus, I came down to the origin of the right upper lobe bronchus. Level 11 node was dissected out and there were at least 2 nodes in this. I identified the posterior ascending branch. We could have easily gotten around this and fire our stapler; however, at this point I discussed the case with Dr. Osbaldo Cervantes and he really did not see anything that he would call a cancer. We are going to fix this totally and see. I simply did not feel there was enough evidence in this 31-year-old to proceed with a right upper lobectomy. 266 mg of Exparel were mixed with 60 mL total of normal saline, injected from the 2nd rib down the 11th rib, above the rib to fill the interspace. This intrathoracic block was done under thoracoscopic guidance. A 24-Colombian chest tube was then placed in the anterior thoracoscopy port and about the eighth interspace and directed towards the apex. Sutured in place with heavy silk suture. There was really no air leak noted at conclusion of the case. 0 Polysorb was used to close the muscle layers and the two 12 mm ports. 4-0 Monocryl was used to close the incisions in all. He tolerated it well, his lung was completely expanded with no air leak in the PACU. I attest to the content of the Intraoperative Record and any orders documented therein. Any exception s are noted below.
[2016-09-23] MEDS ORDERED: NURSING VERBAL MED ORDER ONE ×2 (17:30→18:15)
[2016-09-23] MEDS: CEFAZOLIN IV 2,000 MG in DEXTROSE 5% 50ML 100 ML IV SCH (18:17)
[2016-09-23] MEDS: DOCUSATE SODIUM 100 MG CAP PO SCH (21:00)
[2016-09-24 01:19] VITALS: BP 102/52; PULSE 91; TEMP 36.7; O2SAT 97
[2016-09-24] MEDS: CEFAZOLIN IV 2,000 MG in DEXTROSE 5% 50ML 100 ML IV SCH (01:23)
[2016-09-24] MEDS: METOCLOPRAMIDE HCL INJ 5 MG/ML 2 ML VIAL IV. SCH (04:01)
[2016-09-24] MEDS: KETOROLAC TROMETHAMINE 30 MG/ML VIAL IV. SCH (04:01)
[2016-09-24] MEDS: OXYCODONE HCL IR 5 MG TAB (IMMEDIATE RELEASE) PO PRN ×2 (04:21→08:44)
[2016-09-24 05:15] VITALS: BP 111/69; PULSE 80; TEMP 36.7; O2SAT 98
[2016-09-24] MEDS: ACETAMINOPHEN IV 1000MG/100ML IV SCH (05:31)
--- NOTE | 2016-09-24 07:15 | DIAGNOSTIC IMAGING REPORT ---
CHEST ONE VIEW PORTABLE CLINICAL HISTORY: 31 years-old Male presenting with RUL wedge. TECHNIQUE: Portable upright AP view of the chest was obtained. COMPARISON: 09/23/2016. FINDINGS: Large bore right pleural drain terminates near the right apex. Minimal subcutaneous emphysema noted along the right lateral chest wall and right supraclavicular fossa. Cardiomediastinal silhouette normal. Suture margin noted along the paramediastinal right apex. Interval resolution of right mid lung opacities. No focal infiltrate. No large pleural effusion. No residual pneumothorax. Osseous structures and upper abdomen normal. IMPRESSION: 1. Large bore right pleural drain remains in place. No residual pneumothorax. 2. Postsurgical changes of the right upper lobe. Electronically signed by: Osbaldo Headley M.D. 09/24/2016 7:13 AM Dictated Date/Time: 09/24/2016 7:10 AM
[2016-09-24 07:46] VITALS: BP 128/72; PULSE 75; TEMP 36.6; O2SAT 100
[2016-09-24 07:58] VITALS: O2SAT 100
[2016-09-24] MEDS ORDERED: NRN300 PO (08:16)
[2016-09-24] MEDS ORDERED: CLC100 PO (08:16)
[2016-09-24] MEDS ORDERED: OXYC-59 PO (08:16)
--- NOTE | 2016-09-24 08:20 | Discharge Instructions ---
Discharge Instructions Date of Service Sep 24, 2016. Admission Reason for Admission: Spontaneous Pneumothorax Discharge Discharge Diagnosis / Problem: Spontaneous Pneumothorax Discharge Goals Goal(s): Decrease discomfort, Improve function Activity Recommendations Activity Limitations: as noted below Lifting Limitations: none 1. Do not drive if taking percocet 2. Do not fly or SCUBA dive until cleared to do so by Dr. Koehler. . Instructions / Follow-Up Instructions / Follow-Up 1. Office appointment with Dr. Koehler in 1 week. Office will call you with date and time of appointment. Go to hospital 1 hour before appointment to have a chest x-ray taken. 2. Yo umay remove dressing in 3 days (September 27, 2016) and shower thereafter. No tub baths. Current Hospital Diet Patient's current hospital diet: Regular Diet Discharge Diet Recommended Diet: Regular Diet Procedures Procedures Performed: Right Robot-assisted Thoracoscopy,Excision of Apical Bleb and Right Upper Lobe Lesion Pending Studies Studies pending at discharge: no Medical Emergencies . Who to Call and When: Medical Emergencies: If at any time you feel your situation is an emergency, please call 911 immediately. . Non-Emergent Contact Non-Emergency issues call your: Surgeon Call Non-Emergent contact if: you have a fever, your pain is not controlled, wound has increased drainage . "Provider Documentation" section prepared by Ramsey Lainez. . VTE Core Measure Inpt VTE Proph given/why not?: Enoxaparin (Lovenox)SQ
--- NOTE | 2016-09-24 08:26 | DIAGNOSTIC IMAGING REPORT ---
CHEST ONE VIEW PORTABLE CLINICAL HISTORY: 31 years-old Male presenting with chest tube removal . TECHNIQUE: Portable upright AP view of the chest was obtained. COMPARISON: 09/24/2016. FINDINGS: Interval removal of the large bore right pleural drain. Cardiomediastinal silhouette normal. Lungs clear. Interval recurrence of small apical pneumothorax. Minimal subcutaneous emphysema noted in the right supraclavicular fossa. No pleural effusion. Osseous structures and upper abdomen normal. IMPRESSION: 1. Small recurrent apical pneumothorax status post removal of the pleural drain. Electronically signed by: Osbaldo Headley M.D. 09/24/2016 8:25 AM Dictated Date/Time: 09/24/2016 8:23 AM
[2016-09-24] MEDS ORDERED: OXYC-106 PO (08:44)
[2016-09-24] MEDS: NICOTINE 14 MG/24 HR TDSY TD SCH (08:44)
[2016-09-24] MEDS: GABAPENTIN 300 MG CAP PO SCH (08:44)
[2016-09-24] MEDS: DOCUSATE SODIUM 100 MG CAP PO SCH (08:44)
[2016-09-24] MEDS: ENOXAPARIN 40 MG/0.4 ML SYR SQ SCH ×2 (08:45→08:50)
--- NOTE | 2016-09-24 09:29 | Anesthesiology Progress Note ---
Anesthesia Post Op Note Date & Time Sep 24, 2016 at 09:28 Vital Signs Vital Signs Past 12 Hours Date Time Temp Pulse Resp B/P (MAP) Pulse Ox O2 Delivery O2 Flow Rate FiO2 09/24/16 07:58 100 Room Air Nasal Cannula 09/24/16 07:46 36.6 75 14 128/72 (90) 100 Room Air 09/24/16 07:35 Room Air 09/24/16 05:15 36.7 80 18 111/69 (83) 98 Room Air 09/24/16 01:19 36.7 91 16 102/52 (69) 97 Room Air 09/24/16 00:00 Room Air 09/23/16 23:15 36.8 86 18 100/59 (73) 98 Room Air Notes Mental Status: alert / awake / arousable, participated in evaluation Pt Amnestic to Procedure: Yes Nausea / Vomiting: adequately controlled Pain: adequately controlled Airway Patency, RR, SpO2: stable & adequate BP & HR: stable & adequate Hydration State: stable & adequate Anesthetic Complications: no major complications apparent
[2016-09-24 09:34] VITALS: BP 128/72; PULSE 75; TEMP 36.6; O2SAT 100
--- NOTE | 2016-09-24 10:05 | DISCHARGE SUMMARY ---
DATE OF DISCHARGE: 09/24/2016. DISCHARGE DIAGNOSES: 1. Spontaneous pneumothorax. 2. Right apical blebs. 3. Right upper lobe nodule. 4. History of cigarette smoking. 5. History of opioid dependence for low back pain. HOSPITAL COURSE: This is a 31-year-old who developed acute chest pain and was found to have a large right pneumothorax. I placed a 16 Barbadian thoracostomy tube in the Emergency Room and his lung completely expanded. The patient has a history of using opioids and had issues with his low back and his left shoulder. We admitted the patient and did a CT scan and indeed he did have some bullae on the right but his lung expanded; however, he also had a small soft tissue mass in his right lower lobe that was about 5 or 6 mm. It was lateral and near the fissure. I had a long discussion about this. On 09/23/2016 I took the patient to the operating room and did a robotic assisted thoracoscopic surgery with apical bleb resection. However, I also did a very generous wedge that included this mass. We could not palpate this mass and we could not see it under frozen section. It was very small. We will have to wait for the permanent slides. The patient is only 31 years old. I elected not to proceed with a lobectomy at that time. It was not surprising they could not find it on frozen section. The patient did very well with surgery. He had no air leak. I removed his chest tube the morning after surgery. His x-ray looked quite good except for very tiny apical pneumothorax. He was discharged home. I did give him Percocet. I gave him 60 Percocets 10/325. I explained to him I do not want him using these narcotics except for pain. I also explained that I will be very conservative about giving him any more. He has a very low pain threshold and was complaining of significant pain with his very small chest tube and although he was better after we removed his chest tube the morning after surgery. We will see him back in the office next week to go over his final pathology.
== END 2016-09-24 10:05 | disposition home or self-care (01) | DRG 168 ==
LOC: C.EDB 10:34 → EDBD 10:34 → C.MSN 12:47 → ENRESERV 13:27
PROVIDERS: ADMIT Surgery; ATTEND Surgery
PROC: 0W9930Z Drainage of Right Pleural Cavity with Drainage Device, Percutaneous Approach (ICD-10-PCS; principal; 2016-09-21)
PROC: 0BBC4ZX Excision of Right Upper Lung Lobe, Percutaneous Endoscopic Approach, Diagnostic (ICD-10-PCS; 2016-09-23)
PROC: 8E0W4CZ Robotic Assisted Procedure of Trunk Region, Percutaneous Endoscopic Approach (ICD-10-PCS; 2016-09-23)
DX: J93.83 Other pneumothorax (principal); J98.4 Other disorders of lung; R91.1 Solitary pulmonary nodule; F17.210 Nicotine dependence, cigarettes, uncomplicated; M54.2 Cervicalgia; M54.6 Pain in thoracic spine; M54.5 Low back pain; Z87.898 Personal history of other specified conditions; Z86.59 Personal history of other mental and behavioral disorders; Z87.39 Personal history of other diseases of the musculoskeletal system and connective tissue; Z79.899 Other long term (current) drug therapy; Z79.891 Long term (current) use of opiate analgesic

== ENCOUNTER 2016-09-26 11:26 | Emergency (ER) | payer OTHER ==
[~2016-09-26] VITALS: Ht 177.8 cm; Wt 67.0 kg
[2016-09-26 11:26] VITALS: TEMP 36.8; Ht 177.8 cm; Wt 67.0 kg
[~2016-09-26 11:26] MED LIST: CLC100 PO; FLX/5; NRN300 PO; OXYC-106 PO
[2016-09-26 11:39] VITALS: O2SAT 97
[2016-09-26 12:18] LABS: BASO % 0.5 %; BASO ABS # 0.06 K/uL (0-0.2); COMPLETE YES; EOS % 2.5 %; HEMATOCRIT 43.9 % (42-52); IG% 0.2 %; LYMPH % 19.3 %; LYMPH ABS # 2.12 K/uL (1.2-3.4); MEAN CELL VOLUME 92.6 fL (80-100); MEAN CORPUSCULAR HGB CONC 33.5 g/dl (32-36); MEAN PLATELET VOLUME 10.9 fL (7.4-10.4); MONO % 9.3 %; NEUT % 68.2 %; PLATELET COUNT 239 K/uL (130-400); RED BLOOD COUNT 4.74 M/uL (4.7-6.1); WHITE BLOOD COUNT 11.01 K/uL (4.8-10.8)
[2016-09-26 12:33] LABS: BUN/CREATININE RATIO 13.6 (10-20); CALCIUM 9.3 mg/dl (8.5-10.1); CREATININE 0.8 mg/dl (0.60-1.40); POTASSIUM 4.5 mmol/L (3.5-5.1)
[2016-09-26 12:36] LABS: ALB/GLOB RATIO 1.1 (0.9-2)
--- NOTE | 2016-09-26 13:46 | DIAGNOSTIC IMAGING REPORT ---
CHEST ONE VIEW PORTABLE CLINICAL HISTORY: Syncope. Recent right pneumothorax. COMPARISON STUDY: Chest CT September 22, 2016 and chest radiograph September 24, 2016. FINDINGS: Postoperative findings within the right lung apex are again noted. Airspace opacity within the medial right upper lung is unchanged. A small right apical pneumothorax is similar to exam of September 24, 2016. There is no left pneumothorax. Cardiac size is normal. Mediastinal contours are unremarkable. IMPRESSION: 1. No change in a small right apical pneumothorax since exam of September 24, 2016. 2. No change in airspace opacity within the medial right lung apex which is likely postsurgical. Electronically signed by: Foster Herring M.D. 09/26/2016 1:44 PM Dictated Date/Time: 09/26/2016 1:42 PM
[2016-09-26] MEDS ORDERED: MAGNESIUM CITRATE 296 ML/BTL PO STA (14:47)
[2016-09-26 14:50] VITALS: BP 142/75; PULSE 76; O2SAT 97
--- NOTE | 2016-09-26 19:38 | EMERGENCY ROOM VISIT NOTE ---
History Report prepared by Roxanna: Israel Ponce Under the Supervision of: Dr. Willy Garcias M.D. First contact with patient: 12:12 Chief Complaint: SYNCOPE Stated Complaint: SYNCOPE Nursing Triage Summary: Patient arrived via EMS. Pt has no c/o on arrival. Pt states when he was changing his dressing from his thoracotomy (done Wednesday for collapsed lung due to "blisters on my lungs") he became warm and lightheaded and believes he passed out. States he took his nerve meds and pain meds at 0700 today and is taking pain medication 1/2 every 4 hours instead of 1 every 6 hours. Pt rates pain 7/10 in right side, site of incision. History of Present Illness The patient is a 31 year old male who presents to the Emergency Room with complaints of a sudden syncopal episode that occurred prior to arrival. He rates his discomfort as a 7/10 in severity around his surgery site. The patient states that on September 21, Dr. Anders performed a thoracotomy due to a ruptured bleb in right lung that called a pneumothorax. He reports that he was standing up and changing his dressings over his surgery site today when the "dutton piece" came off of the tube. The patient states that he believes some air had gotten into the tube. He states that after this incident, he felt warm, lightheaded, and his eyes rolled to the back of his head resulting in a syncopal episode. He also complains of abdominal tenderness due to constipation for the last week, but he admits that he was able to have as small bowel movement this morning. The patient states that he took his nerve and pain medication at 0700 today and takes pain medication every 4 hours. He admits to a history of emphysema due to an extensive history of smoking. 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 The patient denies a change in appetite, headache, fevers, chills, diaphoresis, visual changes, neck pain, chest pain, breathing difficulties, nausea, vomiting, back pain, melena, hematochezia, urinary symptoms, numbness, weakness, lymphadenopathy, rash, or other complaints. Source of History: patient Onset: prior to arrival Position: other (global) Symptom Intensity: 7/10 Timing: other (sudden) Associated Symptoms: + abdominal pain Review of Systems See HPI for pertinent positives and negatives. A total of ten systems were reviewed and were otherwise negative. Past Medical & Surgical Medical Problems: (1) Hypertension (2) Spontaneous pneumothorax (3) Tendonitis of shoulder, left Family History Diabetes mellitus Seizures Social History Smoking Status: Current Every Day Smoker Alcohol Use: none Marital Status: in relationship Housing Status: lives with significant other Occupation Status: employed Current/Historical Medications Scheduled Gabapentin (Gabapentin), 300 MG PO TID Scheduled PRN Oxycodone/Acetaminophen 10MG/325MG (Percocet 10MG/325MG), 1 TAB PO Q6 PRN for Pain Allergies Coded Allergies: No Known Allergies (Unverified , 09/26/16) Physical Exam Vital Signs Date Time Temp Pulse Resp B/P (MAP) Pulse Ox O2 Delivery O2 Flow Rate FiO2 09/26/16 14:50 76 16 142/75 97 Room Air 09/26/16 13:30 63 14 123/80 94 Room Air 09/26/16 13:00 67 17 129/75 97 Room Air 09/26/16 12:36 75 09/26/16 12:12 83 14 128/82 98 Room Air 09/26/16 11:39 97 09/26/16 11:26 36.8 96 18 157/100 99 Room Air Physical Exam GENERAL: Awake, alert, well-appearing, in no distress HENT: Normocephalic, atraumatic. Oropharynx unremarkable. EYES: Normal conjunctiva. Sclera non-icteric. NECK: Supple. No nuchal rigidity. FROM. No JVD. CHEST: Right sided tenderness around incisions with minimal serous drainage on bandages. No signs of infection. RESPIRATORY: Clear to auscultation. CARDIAC: Regular rate, normal rhythm. Extremities warm and well perfused. Pulses equal. ABDOMEN: Soft, non-distended. Minimal abdominal tenderness on right upper quadrant. No rebound or guarding. No masses. RECTAL: Deferred. MUSCULOSKELETAL: Chest examination reveals no tenderness. The back is symmetrical on inspection without obvious abnormality. There is no CVA tenderness to palpation. No joint edema. LOWER EXTREMITIES: Calves are equal size bilaterally and non-tender. No edema. No discoloration. NEURO: Normal sensorium. No sensory or motor deficits noted. SKIN: No rash or jaundice noted. Medical Decision & Procedures ER Provider Diagnostic Interpretation: X-ray: Per my interpretation, radiologist review. CHEST ONE VIEW PORTABLE CLINICAL HISTORY: Syncope. Recent right pneumothorax. COMPARISON STUDY: Chest CT September 22, 2016 and chest radiograph September 24, 2016. FINDINGS: Postoperative findings within the right lung apex are again noted. Airspace opacity within the medial right upper lung is unchanged. A small right apical pneumothorax is similar to exam of September 24, 2016. There is no left pneumothorax. Cardiac size is normal. Mediastinal contours are unremarkable. IMPRESSION: 1. No change in a small right apical pneumothorax since exam of September 24, 2016. 2. No change in airspace opacity within the medial right lung apex which is likely postsurgical. Electronically signed by: Foster Herring M.D. 09/26/2016 1:44 PM Dictated Date/Time: 09/26/2016 1:42 PM Laboratory Results 09/26/16 11:35 Red Blood Count 4.74, Mean Corpuscular Volume 92.6, Mean Corpuscular Hemoglobin 31.0, Mean Corpuscular Hemoglobin Concent 33.5, Mean Platelet Volume 10.9, Neutrophils (%) (Auto) 68.2, Lymphocytes (%) (Auto) 19.3, Monocytes (%) (Auto) 9.3, Eosinophils (%) (Auto) 2.5, Basophils (%) (Auto) 0.5, Neutrophils # (Auto) 7.51, Lymphocytes # (Auto) 2.12, Monocytes # (Auto) 1.02, Eosinophils # (Auto) 0.28, Basophils # (Auto) 0.06 09/26/16 11:35 Test 09/26/16 11:35 White Blood Count 11.01 K/uL (4.8-10.8) Red Blood Count 4.74 M/uL (4.7-6.1) Hemoglobin 14.7 g/dL (14.0-18.0) Hematocrit 43.9 % (42-52) Mean Corpuscular Volume 92.6 fL (80-100) Mean Corpuscular Hemoglobin 31.0 pg (25-34) Mean Corpuscular Hemoglobin Concent 33.5 g/dl (32-36) Platelet Count 239 K/uL (130-400) Mean Platelet Volume 10.9 fL (7.4-10.4) Neutrophils (%) (Auto) 68.2 % Lymphocytes (%) (Auto) 19.3 % Monocytes (%) (Auto) 9.3 % Eosinophils (%) (Auto) 2.5 % Basophils (%) (Auto) 0.5 % Neutrophils # (Auto) 7.51 K/uL (1.4-6.5) Lymphocytes # (Auto) 2.12 K/uL (1.2-3.4) Monocytes # (Auto) 1.02 K/uL (0.11-0.59) Eosinophils # (Auto) 0.28 K/uL (0-0.5) Basophils # (Auto) 0.06 K/uL (0-0.2) RDW Standard Deviation 43.9 fL (36.4-46.3) RDW Coefficient of Variation 12.8 % (11.5-14.5) Immature Granulocyte % (Auto) 0.2 % Immature Granulocyte # (Auto) 0.02 K/uL (0.00-0.02) Anion Gap 4.0 mmol/L (3-11) Est Creatinine Clear Calc Drug Dose 128.0 ml/min Estimated GFR () 138.9 Estimated GFR (Non- 119.9 BUN/Creatinine Ratio 13.6 (10-20) Calcium Level 9.3 mg/dl (8.5-10.1) Total Bilirubin 0.3 mg/dl (0.2-1) Aspartate Amino Transf (AST/SGOT) 23 U/L (15-37) Alanine Aminotransferase (ALT/SGPT) 22 U/L (12-78) Alkaline Phosphatase 99 U/L (45-117) Total Protein 7.5 gm/dl (6.4-8.2) Albumin 3.9 gm/dl (3.4-5.0) Globulin 3.6 gm/dl (2.5-4.0) Albumin/Globulin Ratio 1.1 (0.9-2) Laboratory results reviewed by me Medications Administered Medications (Trade) Dose Ordered Sig/Ramy Route Start Time Stop Time Status Last Admin Dose Admin Magnesium Citrate (Citrate Of Magnesia Soln) 296 ml NOW STAT PO 09/26/16 14:47 09/26/16 14:48 DC 09/26/16 14:53 296 ML ECG Indication: syncope Rate (beats per minute): 75 Rhythm: normal sinus Findings: no acute ischemic change, no ectopy ED Course 1227: The patient was evaluated in room C07. A complete history and physical exam was performed. 1437: I discussed the patients case with Dr. Bowles, [facility]. He reports that it is okay for patient to be discharged since x ray is unchanged as long as he agrees to follow up as scheduled 1447: Magnesium Citrate 296 ml PO. 1451: I reevaluated the patient. Discussed results and discharge instructions: He verbalized understanding and agreement. The patient is ready for discharge. Medical Decision Medication Reconciliation: I attest that I have personally reviewed the patient' s current medication list Patient was found to have a slightly elevated blood pressure due to circumstances. I do not believe that the patient requires hypertension monitoring. Triage Nursing notes reviewed. The patient's presentation and history were concerning for syncope and recent pneumothorax surgery. Etiologies such as vasovagal event, infection, hypoglycemia, electrolyte abnormalities, cardiac sources, intracerebral event, toxicologic, neurologic, as well as others were entertained. Patient was evaluated. Clinically he looked well. His ECG was unremarkable vital signs were stable. His history sounds consistent with a vasovagal event. He had a prodrome and then had a brief syncopal episode while having his dressings changed. The patient had unremarkable laboratory studies except for a very subtle leukocytosis. He denies any fever or infectious symptoms. The patient underwent chest x-ray imaging and this revealed no significant change from his discharge chest x-ray. He has a tiny residual apical pneumothorax. The patient felt well. I did discuss the case with the on-call surgeon, Dr. Bowles as the patient's thoracic surgeon, Dr. Koehler was not available. He agreed for conservative management. The patient has a follow-up appointment this week with thoracic surgery. She worsens in any way he will be back. I gave my usual and customary discussion regarding this issue. The patient does note constipation from his pain medication. He was given magnesium citrate to go. By the evaluation outlined above other emergent etiologies such as those listed in the differential, as well as others, were deemed relatively unlikely. The patient was educated about the findings as listed above. All questions were answered and the patient was pleased with the treatment. Return instructions were outlined and the patient was discharged in stable condition. The patient was referred to thoracic surgery for follow-up for a recheck of the current condition. Consults Time Called: 1434 Consulting Physician: Dr. Bowles, [facility] Returned Call: [phone] I discussed the patients case with Dr. Bowles, [facility]. He reports that it is okay for patient to be discharged since x ray is unchanged as long as he agrees to follow up as scheduled Impression Primary Impression: Syncope Additional Impression: Pneumothorax Scribe Attestation The scribe's documentation has been prepared under my direction and personally reviewed by me in its entirety. I confirm that the note above accurately reflects all work, treatment, procedures, and medical decision making performed by me. Departure Information Dispostion Home / Self-Care Referrals Kailey Masters M.D. (PCP) Forms HOME CARE DOCUMENTATION FORM, IMPORTANT VISIT INFORMATION Patient Instructions My [facility] Additional Instructions Magnesium citrate: Drink half of the bottle when you get home. If you do not have a good bowel movement within 8 hours drink the other half. Obtained an [id number] stool softener and take twice daily. Colace as a good example. Rest and drink plenty of fluids as tolerated. Continue current medications. Return to the ER for passing out, chest pain, headache, persistent vomiting, fevers, abdominal pain, chest pains, difficulty breathing, black or bloody stools, worsening of your condition, or as needed. Follow up with your surgeon as scheduled this week for a recheck of your current condition Problem Qualifiers
== END 2016-09-26 15:05 | disposition home or self-care (01) ==
LOC: EDBD 11:26 → C.EDC 11:28
DX: R55 Syncope and collapse (principal); J93.9 Pneumothorax, unspecified; I10 Essential (primary) hypertension; R10.9 Unspecified abdominal pain; Z79.899 Other long term (current) drug therapy; F17.200 Nicotine dependence, unspecified, uncomplicated

== ENCOUNTER → 2016-10-01 | Outpatient (CLI) | payer OTHER ==
[~2016-10-01] MED LIST changes: -CLC100 PO; -FLX/5
--- NOTE | 2016-10-01 13:03 | DIAGNOSTIC IMAGING REPORT ---
CHEST 2 VIEWS ROUTINE HISTORY: J93.9 Pneumothorax COMPARISON: Chest 09/26/2016. FINDINGS: Tiny right apical pneumothorax is decreased in size and demonstrates a pleural gap of 5 mm. The left lung is clear. The heart is normal in size. Slight improved aeration within the medial airspace opacity within the right upper lobe surrounding the suture material. This favors resolving postoperative change. No pleural effusions. IMPRESSION: 1. Decrease in size in the tiny right apical pneumothorax. 2. Slight improved aeration within the right medial apical airspace opacity surrounding the suture material. Electronically signed by: Yogesh Griffith M.D. 10/01/2016 1:02 PM Dictated Date/Time: 10/01/2016 1:00 PM
== END | disposition home or self-care (01) ==
LOC: C.RAD 12:19
PROVIDERS: ATTEND Surgery
DX: J93.9 Pneumothorax, unspecified (principal)